=== PATIENT | male | born 2000 | race Two or more races ===

== ENCOUNTER 2024-09-11 17:49 | Emergency (ER) | payer OTHER, SELFPAY ==
[~2024-09-11] VITALS: Ht 182.9 cm; Wt 68.1 kg
--- NOTE | 2024-09-11 18:56 | ED.PDOC ---
History of Present Illness(SKN HPI Comments 24-YEAR-OLD MALE PRESENTS TO THE ED STATUS POST DOG BITE. PATIENT STATES HE WAS BIT BY HIS HUSKY WHILE HE WAS FEEDING IT BIT ON THE RIGHT HAND PALM. STATES IT HAPPENED AROUND 1800 TONIGHT. REPORTS VACCINATIONS ARE UP-TO-DATE. APPROXIMATE 1.5 CM LACERATION/PUNCTURE WOUND BLEEDING CONTROLLED. DENIES ANY OTHER INJURY. DENIES NUMBNESS, WEAKNESS. NOTES TETANUS SHOT WAS GREATER THAN 10 YEARS AGO. REPORTS NO SIGNIFICANT MEDICAL HISTORY OR ALLERGIES TO MEDICATIONS. Chief Complaint: Animal Bite Time Seen by MD: 18:28 Primary Care Provider: MARYK History of Present Illness: Nurses Notes, Medications, Allergies Allergies: Coded Allergies: NO KNOWN ALLERGIES (Unverified , 11/09/11) Information Source: Patient Mode of Arrival: Ambulatory Past Medical History PAST MEDICAL HISTORY: Denies Surgical History: Denies all surgeries Family History Family History: Unknown Social History Smoker: Non-Smoker Alcohol: Denies ETOH Use Drugs: Denies Drug Use Lives In: Home Constitutional: denies: chills, diaphoresis, fatigue, fever, malaise, sweats, weakness, others EENTM: denies: blurred vision, double vision, ear bleeding, ear discharge, ear drainage, ear pain, ear ringing, eye pain, eye redness, hearing loss, mouth pain, mouth swelling, nasal discharge, nose bleeding, nose congestion, nose pain, photophobia, tearing, throat pain, throat swelling, voice changes, others Respiratory: denies: cough, hemoptysis, orthopnea, SOB at rest, shortness of breath, SOB with excertion, stridor, wheezing, others Cardiovascular: denies: chest pain, dizzy spells, diaphoresis, Dyspnea on exertion, edema, irregular heart beat, left arm pain, lightheadedness, palpitations, PND, syncope, others Gastrointestinal: denies: abdomen distended, abdominal pain, blood streaked bowels, constipated, diarrhea, dysphagia, difficulty swallowing, hematemesis, melena, nausea, poor appetite, poor fluid intake, rectal bleeding, rectal pain, vomiting, others Genitourinary: denies: burning, dysuria, flank pain, frequency, hematuria, incontinence, penile discharge, penile sore, pain, testicle pain, testicle swelling, urgency, others Neurological: denies: dizziness, fainting, headache, left sided numbness, left sided weakness, numbness, paresthesia, pre-existing deficit, right sided numbness, right sided weakness, seizure, speech problems, tingling, tremors, weakness, others Musculoskeletal: denies: back pain, gout, joint pain, joint swelling, muscle pain, muscle stiffness, neck pain, others Integumetry: reports: wounds (RIGHT HAND PUNCTURE WOUND); denies: bruises, c hange in color, change in hair/nails, dryness, laceration, lesions, lumps, rash, others Allergic/Immunocompromised: denies: Difficulty Healing, Frequent Infections, Hives, Itching, others Hematologic/Lymphatic: denies: anemia, blood clots, easy bleeding, easy bruising, swollen glands, others Endocrine: denies: excessive hunger, excessive sweating, excessive thirst, excessive urination, flushing, intolerance to cold, intolerance to heat, unexp lained weight gain, unexplained weight loss, others Psychiatric: denies: anxiety, bipolar disorder, depression, hopeless, panic disorder, schizophrenia, sleepless, suicidal, others Physical Exam General Appearance: No Apparent Distress, Normal HEENT: Pharynx Normal Neck: Full Range of Motion Respiratory: Lungs Clear, No Respiratory Distress, Normal Breath Sounds Cardiovascular: No Murmur, Normal Peripheral Pulses, Regular Rate/Rhythm Breast Exam: Deferred Gastrointestinal: Non Tender, Soft Genitalia: Deferred Pelvic: Deferred Rectal: Deferred Extremities: Normal capillary refill, Normal range of motion Musculoskeletal : Apperance: Normal Neurologic: Alert, No Motor Deficits, Normal Affect, Normal Mood, No Sensory Deficits Cerebellar Function: Normal Reflexes: NOT DONE Skin: Dry, Normal Color, Warm, Wounds (1.5 CM LACERATION/PUNCTURE WOUND TO RIGHT HAND PALM ASPECT NO OBVIOUS FOREIGN BODY BLEEDING IS CONTROLLED STRENGTH SENSORY MOTION IS INTACT) Lymphatic: No Adenopathy Was a procedure done? Was a procedure done?: Yes Sedation Sedation?: No Informed consent obtained: Yes Laceration Repair : Location RIGHT HAND PALM ASPECT Length 1.5 CM Anesthetic: Nothing Laceration Repair Prep: Saline, by Irrigation Laceration Repair Wound Comple: subcut tissue repair Laceration Repair: Non-adherent gauze Informed consent obtained: Yes Risks, benefits, and alternati: Yes Notes IRRIGATED WITH NORMAL SALINE STERI-STRIPS APPLIED BLEEDING CONTROLLED PATIENT TOLERATED WELL MINIMAL BLOOD LOSS Differential Diagnosis (INTG) Differential Diagnosis: Cellulitis, Puncture Wound Differential Diagnosis: Abscess X-Ray, Labs, Meds, VS Vital Signs Date Time Temp Pulse Resp B/P (MAP) Pulse Ox O2 Delivery O2 Flow Rate FiO2 09/11/24 17:51 98.1 99 17 122/83 100 98.1 X-Ray, Labs, Meds, VS Comment See procedure note. Patient given Tdap. Script prophylactic trial of Augmentin twice daily x7 days. Advised to take medications as prescribed side effects discussed. Advised not to remove Steri-Strips Steri-Strips fall off. Advised to follow up with PCP in 2-3 days as necessary advised on ER return precautions patient indicates understanding agrees with discharge plan of care. Time of 1ST Reevaluation: 18:56 Reevaluation 1ST: Unchanged Time of 2ND Reevaluation: 19:08 Reevaluation 2ND: Improved Patient Education/Counseling: Diagnosis, Treatment, Prognosis, Need For Follow Up Family Education/Counseling: No Family Present SEPSIS Sepsis Screen Date sepsis recognized/suspect: Sep 11, 2024 Time Sepsis recognized/suspect: 1750 Recent Procedure: No On Antibiotic Therapy: No Respiratory Rate >20: No Heart Rate >90: No Temp<36 C (96.8 F) or >38.3 C: No SBP <90 or MAP <65 mmHG: No New Acute Mental Status Change: No Is the patient on CPAP, BIPAP,: No Vital Signs Date Time Temp Pulse Resp B/P (MAP) Pulse Ox O2 Delivery O2 Flow Rate FiO2 09/11/24 17:51 98.1 99 17 122/83 100 98.1 Departure 1 Departure Time of Disposition: 19:09 Impression: Primary Impression: Dog bite of right hand without complication Qualified Codes: S61.451A - Open bite of right hand, initial encounter; W54.0XXA - Bitten by dog, initial encounter Disposition: 01 HOME / SELF CARE / HOMELESS Condition: Stable e-Prescriptions Ibuprofen Micronized (MOTRIN TABLET) 600 Mg Tb 600 MG PO TID PRN for 4 Days, #12 TAB *Black box warning-NSAIDS can increase risk of ME & hypertension, GI irritation, ulceration, bleed, perferation. Do not use post cardiac surgery. Use short duration/lowest effective dose. Prov: SAVANA MCDANIEL DENITRATOR 09/11/24 Amoxicillin & Pot Clavulanate (AUGMENTIN TABLET) 875 Mg Tb 875 MG PO BID for 7 Days, #14 TAB Prov: SAVANA MCDANIEL 09/11/24 Discharged With: Self Critical Care Note Critical Care Time?: No Stability Stability form required: No SAVANA MCDANIEL Sep 11, 2024 18:56
[2024-09-11] MEDS ORDERED: IBU600T PO (19:11)
[2024-09-11] MEDS ORDERED: AUG875T PO (19:11)
[2024-09-11] MEDS: TETANUS-DIPTH-ACEL PERTUSSIS 0.5ML SYR Tdap IM ONE (19:21)
[2024-09-11 19:27] VITALS: BP 122/70; PULSE 65; RESP 16; TEMP 98.2; O2SAT 98
== END 2024-09-11 19:29 | disposition home or self-care (01) ==
LOC: ER 17:49
DX: S61.411A Laceration without foreign body of right hand, initial encounter (principal); W54.0XXA Bitten by dog, initial encounter; Y93.89 Activity, other specified; Y92.89 Other specified places as the place of occurrence of the external cause; Y99.8 Other external cause status
CPT/HCPCS: 90471; 90715